=== PATIENT | male | born 1960 | race Caucasian/White ===

== ENCOUNTER 2016-11-27 02:31 | Inpatient (IN) | payer OTHER ==
[~2016-11-27] VITALS: Ht 170.2 cm; Wt 69.8 kg
[2016-11-27] VITALS (17 sets, daily range): BP systolic 93–135; BP diastolic 70–89
[2016-11-27 02:51] LABS: PLATELET COUNT 446 K/uL (156-360)
[2016-11-27 02:56] LABS: HEMATOCRIT 44.5 % (38.0-50.0); MCV 86.9 FL (86-99); RBC DIS.WIDTH-CV 15.1 % (11.8-14.6); RED BLOOD COUNT 5.12 M/uL (4.00-5.50)
[2016-11-27 02:57] LABS: WHITE BLOOD COUNT 33.9 K/uL (4.1-10.2)
[2016-11-27 02:59] LABS: CHLORIDE 99 mEq/L (99-109); POTASSIUM 4.3 mEq/L (3.7-5.4); SODIUM 141 mEq/L (136-147)
[2016-11-27 03:01] LABS: GLUCOSE 218 mg/dL (70-99)
[2016-11-27 03:03] LABS: ANION GAP 15 MEQ/L (2-14)
[2016-11-27 03:06] LABS: CARBON DIOXIDE (BICARBONATE) 37.8 MEQ/L (20-31)
[2016-11-27 03:06] LABS: UREA NITROGEN (BUN) 16 mg/dL (9-23)
[2016-11-27 03:09] LABS: GFR ESTIMATE (CALCULATED) > 59 mL/min/
[2016-11-27 03:13] LABS: TROP-I INTERPRETATION NEGATIVE; TROPONIN-I 0.16 ng/mL (0.0-0.30)
[2016-11-27] MEDS ORDERED: CREON DR 36,001 EACH PO (03:48)
[2016-11-27] MEDS ORDERED: METOCLOPRAMIDE10 MG PO (03:49)
[2016-11-27] MEDS ORDERED: SUCRALFATE1 GM PO (03:49)
[2016-11-27] MEDS ORDERED: PANTOPRAZOLE SO40 MG PO (03:49)
[2016-11-27] MEDS ORDERED: PRAVASTATIN SOD20 MG PO (03:50)
[2016-11-27] MEDS ORDERED: POTASSIUM CHLO20 ME1 PO (03:50)
[2016-11-27] MEDS ORDERED: FENOFIBRATE160 M1 PO (03:50)
[2016-11-27] MEDS ORDERED: SERTRALINE HCL100 MG PO (03:51)
[2016-11-27] MEDS ORDERED: METOPROLOL SUCC25 MG PO (03:51)
[2016-11-27] MEDS ORDERED: NORTRIPTYLINE H25 MG PO (03:51)
[2016-11-27] MEDS ORDERED: DIAZEPAM5 MG PO (03:52)
[2016-11-27] MEDS ORDERED: OXYCODONE HCL30 MG PO (03:52)
[2016-11-27] MEDS ORDERED: MORPHINE SULFA100 M2 PO (03:53)
[2016-11-27] MEDS ORDERED: ASPIR-LOW81 MG PO (03:54)
[2016-11-27] MEDS ORDERED: NITROSTAT0.4 MG SL (03:54)
[2016-11-27] MEDS ORDERED: VITAMIN D-32000 UNI2 PO (03:55)
[2016-11-27] MEDS ORDERED: VITAMIN B-1100 MG PO (03:55)
[2016-11-27] MEDS ORDERED: FISH OIL 1,0001 EAC7 PO (03:56)
[2016-11-27] MEDS ORDERED: CENTRUM SILVER1 EAC5 PO (03:56)
[2016-11-27] MEDS ORDERED: SPIRIVA RESPIMAT4 GM IH (03:57)
[2016-11-27] MEDS ORDERED: ADVAIR HFA120 INHALA IH (03:57)
[2016-11-27] MEDS ORDERED: PROAIR HFA8.5 GM IH (03:58)
[2016-11-27] MEDS ORDERED: DUONEB 2.5-0.5 M3 ML AEROSOL (03:59)
[2016-11-27] MEDS ORDERED: PREDNISONE10 MG PO (04:00)
[2016-11-27 05:58] LABS: METH RESISTANT S AUREUS PCR NEGATIVE (NEGATIVE)
[2016-11-27 06:00] LABS: PROBE CHECK PASS; SPECIMEN PROCESSING CONTROL PASS
[2016-11-28] VITALS (17 sets, daily range): BP systolic 88–143; BP diastolic 67–89
[2016-11-28 08:56] LABS: CARBON DIOXIDE (BICARBONATE) 39.2 MEQ/L (20-31)
[2016-11-28 08:58] LABS: EOSINOPHIL (%) 0 % (0-5); HEMATOCRIT 39.9 % (38.0-50.0); IMMATURE GRANULOCYTE (%) 0.9 % (0.0-0.7); IMMATURE GRANULOCYTE COUNT 0.2 K/uL; INSTRUMENT ABS NEUTROPHIL CT 17.2 K/uL; LYMPHOCYTE COUNT 1.8 K/uL (1.0-2.8); MCH 26.8 PG (29.0-34.0); MCHC 30.8 G/DL (30.0-36.0); MCV 86.9 FL (86-99); MONOCYTE (%) 6.2 % (3-12); MONOCYTE COUNT 1.3 K/uL (0-0.8); NEUTROPHIL COUNT 17.2 K/uL (1.8-6.4); RBC DIS.WIDTH-SD 48.2 % (39-53); RED BLOOD COUNT 4.59 M/uL (4.00-5.50); WHITE BLOOD COUNT 20.5 K/uL (4.1-10.2)
[2016-11-28 09:10] LABS: ANION GAP 7 MEQ/L (2-14); CHLORIDE 96 MEQ/L (99-109); GFR ESTIMATE (CALCULATED) > 59 mL/min/; MAGNESIUM 1.8 mg/dl (1.3-2.7); POTASSIUM 4.4 MEQ/L (3.7-5.4); SAMPLE HEMOLYSIS CHECK 0; SAMPLE ICTERIC CHECK 0; SAMPLE LIPEMIA CHECK 0; SODIUM 137 MEQ/L (136-147); UREA NITROGEN (BUN) 17 mg/dL (9-23)
[2016-11-28 09:15] LABS: TROP-I INTERPRETATION NEGATIVE; TROPONIN-I 0.19 ng/mL (0.0-0.30)
[2016-11-28 09:20] LABS: GLUCOSE 102 mg/dL (70-99)
[2016-11-28 09:41] LABS: MEAN PLAT.VOLUME 9.1 uM^3 (9.0-12.4); PLAT.SUFFICIENCY ADEQUATE
[2016-11-28 09:51] LABS: PLATELET COUNT 298 K/uL (156-360)
[2016-11-28 11:38] LABS: INFLUENZA A VIRAL ANTIGEN NEGATIVE; INFLUENZA B VIRAL ANTIGEN POSITIVE
[2016-11-29] VITALS (12 sets, daily range): BP systolic 92–133; BP diastolic 61–108
[2016-11-29 05:21] LABS: EOSINOPHIL (%) 0 % (0-5); HEMATOCRIT 41.4 % (38.0-50.0); IMMATURE GRANULOCYTE COUNT 0.2 K/uL; INSTRUMENT ABS NEUTROPHIL CT 20.1 K/uL; LYMPHOCYTE COUNT 1.2 K/uL (1.0-2.8); MCH 26.7 PG (29.0-34.0); MCHC 30.7 G/DL (30.0-36.0); MEAN PLAT.VOLUME 9.5 uM^3 (9.0-12.4); MONOCYTE (%) 4.7 % (3-12); MONOCYTE COUNT 1.1 K/uL (0-0.8); NEUTROPHIL (%) 89.1 % (45-76); NEUTROPHIL COUNT 20.1 K/uL (1.8-6.4); PLATELET COUNT 303 K/uL (156-360); RBC DIS.WIDTH-CV 15.2 % (11.8-14.6); RBC DIS.WIDTH-SD 48.5 % (39-53); RED BLOOD COUNT 4.76 M/uL (4.00-5.50); WHITE BLOOD COUNT 22.6 K/uL (4.1-10.2)
[2016-11-29 06:05] LABS: ANION GAP 7 MEQ/L (2-14); CHLORIDE 95 MEQ/L (99-109); GFR ESTIMATE (CALCULATED) > 59 mL/min/; MAGNESIUM 1.7 mg/dl (1.3-2.7); SAMPLE HEMOLYSIS CHECK 0; SAMPLE ICTERIC CHECK 0; SAMPLE LIPEMIA CHECK 0; SODIUM 137 MEQ/L (136-147); UREA NITROGEN (BUN) 19 mg/dL (9-23)
[2016-11-29 06:15] LABS: GLUCOSE 166 mg/dL (70-99)
[2016-11-29 14:56] LABS: PROTHROMBIN TIME 10.8 SEC (10.2-12.9)
[2016-11-30] VITALS (7 sets, daily range): BP systolic 112–162; BP diastolic 81–124
[2016-11-30 05:55] LABS: EOSINOPHIL (%) 0 % (0-5); HEMATOCRIT 39.7 % (38.0-50.0); IMMATURE GRANULOCYTE (%) 1.1 % (0.0-0.7); IMMATURE GRANULOCYTE COUNT 0.2 K/uL; INSTRUMENT ABS NEUTROPHIL CT 17.2 K/uL; LYMPHOCYTE COUNT 1.4 K/uL (1.0-2.8); MCH 27.7 PG (29.0-34.0); MCV 86.5 FL (86-99); MEAN PLAT.VOLUME 9.4 uM^3 (9.0-12.4); MONOCYTE (%) 5.3 % (3-12); MONOCYTE COUNT 1.1 K/uL (0-0.8); NEUTROPHIL (%) 86.3 % (45-76); NEUTROPHIL COUNT 17.2 K/uL (1.8-6.4); PLATELET COUNT 294 K/uL (156-360); RBC DIS.WIDTH-CV 15.4 % (11.8-14.6); RBC DIS.WIDTH-SD 48.4 % (39-53); RED BLOOD COUNT 4.59 M/uL (4.00-5.50); WHITE BLOOD COUNT 19.9 K/uL (4.1-10.2)
[2016-11-30 06:17] LABS: PROTHROMBIN TIME 11.3 SEC (10.2-12.9)
[2016-11-30 06:24] LABS: ANION GAP 7 MEQ/L (2-14); CHLORIDE 92 MEQ/L (99-109); GFR ESTIMATE (CALCULATED) > 59 mL/min/; GLUCOSE 138 mg/dL (70-99); MAGNESIUM 1.8 mg/dl (1.3-2.7); SAMPLE HEMOLYSIS CHECK 0; SAMPLE ICTERIC CHECK 0; SAMPLE LIPEMIA CHECK 0; SODIUM 135 MEQ/L (136-147); UREA NITROGEN (BUN) 16 mg/dL (9-23)
[2016-12-01] VITALS (7 sets, daily range): BP systolic 111–148; BP diastolic 69–108
[2016-12-01 05:17] LABS: EOSINOPHIL (%) 0 % (0-5); HEMATOCRIT 40.8 % (38.0-50.0); IMMATURE GRANULOCYTE (%) 1.4 % (0.0-0.7); IMMATURE GRANULOCYTE COUNT 0.3 K/uL; LYMPHOCYTE COUNT 1.8 K/uL (1.0-2.8); MCH 27.6 PG (29.0-34.0); MCHC 31.9 G/DL (30.0-36.0); MCV 86.6 FL (86-99); MEAN PLAT.VOLUME 9.3 uM^3 (9.0-12.4); MONOCYTE (%) 4.7 % (3-12); MONOCYTE COUNT 0.9 K/uL (0-0.8); NEUTROPHIL (%) 84.2 % (45-76); PLATELET COUNT 276 K/uL (156-360); RBC DIS.WIDTH-CV 15.3 % (11.8-14.6); RBC DIS.WIDTH-SD 48.5 % (39-53); RED BLOOD COUNT 4.71 M/uL (4.00-5.50)
[2016-12-01 05:38] LABS: ANION GAP 9 MEQ/L (2-14); CHLORIDE 93 MEQ/L (99-109); GFR ESTIMATE (CALCULATED) > 59 mL/min/; GLUCOSE 142 mg/dL (70-99); MAGNESIUM 1.8 mg/dl (1.3-2.7); POTASSIUM 4.5 MEQ/L (3.7-5.4); SAMPLE HEMOLYSIS CHECK 0; SAMPLE ICTERIC CHECK 0; SAMPLE LIPEMIA CHECK 0; SODIUM 135 MEQ/L (136-147); UREA NITROGEN (BUN) 18 mg/dL (9-23)
[2016-12-01 05:42] LABS: INTER. NORMALIZED RATIO 1.2; PROTHROMBIN TIME 13.1 SEC (10.2-12.9)
[2016-12-01 12:28] LABS: POINT-OF-CARE METER ID UU13113731
[2016-12-02] VITALS: BP 122/83
[2016-12-02 04:00] VITALS: BP 105/81
[2016-12-02 04:50] LABS: EOSINOPHIL (%) 0 % (0-5); HEMATOCRIT 43.1 % (38.0-50.0); IMMATURE GRANULOCYTE (%) 1.1 % (0.0-0.7); IMMATURE GRANULOCYTE COUNT 0.2 K/uL; INSTRUMENT ABS NEUTROPHIL CT 17.4 K/uL; LYMPHOCYTE COUNT 2.3 K/uL (1.0-2.8); MCH 26.6 PG (29.0-34.0); MCHC 31.6 G/DL (30.0-36.0); MCV 84.3 FL (86-99); MEAN PLAT.VOLUME 9.5 uM^3 (9.0-12.4); MONOCYTE (%) 4.8 % (3-12); NEUTROPHIL (%) 83.2 % (45-76); NEUTROPHIL COUNT 17.4 K/uL (1.8-6.4); PLATELET COUNT 303 K/uL (156-360); RBC DIS.WIDTH-CV 15.1 % (11.8-14.6); RBC DIS.WIDTH-SD 46.6 % (39-53); RED BLOOD COUNT 5.11 M/uL (4.00-5.50); WHITE BLOOD COUNT 20.9 K/uL (4.1-10.2)
[2016-12-02 05:12] LABS: POTASSIUM ND MEQ/L (3.7-5.4)
[2016-12-02 05:35] LABS: INTER. NORMALIZED RATIO 1.5; PROTHROMBIN TIME 16.8 SEC (10.2-12.9)
[2016-12-02 06:00] LABS: ANION GAP 9 MEQ/L (2-14); CHLORIDE 93 MEQ/L (99-109); GFR ESTIMATE (CALCULATED) > 59 mL/min/; SAMPLE HEMOLYSIS CHECK 2; SAMPLE ICTERIC CHECK 0; SAMPLE LIPEMIA CHECK 0; SODIUM 134 MEQ/L (136-147); UREA NITROGEN (BUN) 19 mg/dL (9-23)
[2016-12-02 06:03] LABS: GLUCOSE 97 mg/dL (70-99)
[2016-12-02 06:11] LABS: MAGNESIUM 1.8 mg/dl (1.3-2.7); POTASSIUM 4.9 MEQ/L (3.7-5.4)
[2016-12-02 08:00] VITALS: BP 120/60
[2016-12-02] MEDS ORDERED: XARELTO20 MG PO (11:30)
[2016-12-02] MEDS ORDERED: XARELTO15 MG PO (11:30)
[2016-12-02] MEDS ORDERED: OSELTAMIVIR PHO75 MG PO (11:33)
== END 2016-12-02 13:41 | disposition home or self-care (01) | DRG 193 ==
LOC: EME 02:31 → EDOF 03:29 → 4WEST 03:29 → ENRESERV 03:37 → 4WEST 04:38 → ENPENDDIS 12-02 14:00
PROVIDERS: Emergency Medicine; Hospitalist; Internal Medicine Critical Care Medicine
DX: J10.1 Influenza due to other identified influenza virus with other respiratory manifestations (principal); J44.1 Chronic obstructive pulmonary disease with (acute) exacerbation; J96.21 Acute and chronic respiratory failure with hypoxia; J96.22 Acute and chronic respiratory failure with hypercapnia; E87.2 Acidosis; I82.441 Acute embolism and thrombosis of right tibial vein; I10 Essential (primary) hypertension; K21.9 Gastro-esophageal reflux disease without esophagitis; E78.5 Hyperlipidemia, unspecified; G89.29 Other chronic pain; K86.1 Other chronic pancreatitis; R63.4 Abnormal weight loss; R73.9 Hyperglycemia, unspecified; K43.9 Ventral hernia without obstruction or gangrene; F17.200 Nicotine dependence, unspecified, uncomplicated; Z23 Encounter for immunization; Z99.81 Dependence on supplemental oxygen; Z88.0 Allergy status to penicillin
CPT/HCPCS: 71010; 71275; 80048; 81003; 82803; 82948; 83605; 83735; 83880; 84100; 84484; 84999; 85025; 85027; 85610; 87040; 87502; 87641; 90686; 93005; 93306; 93970; 94002; 94640; 94640 76; 94760; 94799; 99202; 99281; 99285; J0171; J0456; J1100; J1650; J2930; J3475; J7644

== ENCOUNTER 2016-12-15 12:32 | Emergency (ER) | payer OTHER ==
[~2016-12-15] VITALS: Ht 170.2 cm; Wt 72.0 kg
[~2016-12-15 12:32] MED LIST: ADVAIR HFA120 INHALA IH; ASPIR-LOW81 MG PO; CENTRUM SILVER1 EAC5 PO; CREON DR 36,001 EACH PO; DIAZEPAM5 MG PO; DUONEB 2.5-0.5 M3 ML AEROSOL; FENOFIBRATE160 M1 PO; FISH OIL 1,0001 EAC7 PO; METOCLOPRAMIDE10 MG PO; METOPROLOL SUCC25 MG PO; MORPHINE SULFA100 M2 PO; NITROSTAT0.4 MG SL; NORTRIPTYLINE H25 MG PO; OSELTAMIVIR PHO75 MG PO; OXYCODONE HCL30 MG PO; PANTOPRAZOLE SO40 MG PO; POTASSIUM CHLO20 ME1 PO; PRAVASTATIN SOD20 MG PO; PREDNISONE10 MG PO; PROAIR HFA8.5 GM IH; SERTRALINE HCL100 MG PO; SPIRIVA RESPIMAT4 GM IH; SUCRALFATE1 GM PO; VITAMIN B-1100 MG PO; VITAMIN D-32000 UNI2 PO; XARELTO15 MG PO; XARELTO20 MG PO
[2016-12-15 13:10] LABS: MCH 27.1 PG (29.0-34.0); MCHC 32.2 G/DL (30.0-36.0); MCV 84.1 FL (86-99); MEAN PLAT.VOLUME 8.2 uM^3 (9.0-12.4); PLATELET COUNT 331 K/uL (156-360); RBC DIS.WIDTH-CV 15.3 % (11.8-14.6); RBC DIS.WIDTH-SD 46.3 % (39-53); RED BLOOD COUNT 4.28 M/uL (4.00-5.50); WHITE BLOOD COUNT 12.5 K/uL (4.1-10.2)
[2016-12-15 13:16] LABS: INTER. NORMALIZED RATIO 1.7; PROTHROMBIN TIME 19.3 SEC (10.2-12.9)
[2016-12-15 13:17] LABS: CHLORIDE 97 mEq/L (99-109); POTASSIUM 4.3 mEq/L (3.7-5.4); SODIUM 136 mEq/L (136-147)
[2016-12-15 13:19] LABS: GLUCOSE 151 mg/dL (70-99); PTT 37.7 SEC (25-37)
[2016-12-15 13:20] LABS: ANION GAP 12 MEQ/L (2-14)
[2016-12-15 13:23] LABS: GFR ESTIMATE (CALCULATED) > 59 mL/min/
[2016-12-15 13:47] LABS: UREA NITROGEN (BUN) 8 mg/dL (9-23)
[2016-12-15 14:29] VITALS: BP 106/72
== END 2016-12-15 14:30 | disposition home or self-care (01) ==
LOC: EME 12:32
PROVIDERS: Emergency Medicine
DX: S00.93XA Contusion of unspecified part of head, initial encounter (principal); W01.0XXA Fall on same level from slipping, tripping and stumbling without subsequent striking against object, initial encounter; I10 Essential (primary) hypertension; E78.5 Hyperlipidemia, unspecified; J45.909 Unspecified asthma, uncomplicated; K21.9 Gastro-esophageal reflux disease without esophagitis; Z79.01 Long term (current) use of anticoagulants; F17.200 Nicotine dependence, unspecified, uncomplicated; Z86.73 Personal history of transient ischemic attack (TIA), and cerebral infarction without residual deficits; Z88.0 Allergy status to penicillin
CPT/HCPCS: 70450; 80048; 85027; 85610; 85730; 86341 90; 99281; 99283